=== PATIENT | male | born 1940 ===

== ENCOUNTER 2017-10-16 07:25 | Day surgery (SDC) | payer MEDICARE, OTHER, SELFPAY ==
[2017-10-16] VITALS (8 sets, daily range): BP systolic 121–146; BP diastolic 68–90; PULSE 60–74; RESP 11–18; TEMP 35.8–36.9; O2SAT 96–99; BMI 25.1
--- NOTE | 2017-10-16 | PATH_ITS ---
[facility] Accession Number: [id number] . 01 Material submitted: . PART A: POLYP AT 40CM PART B: MID TRANSVERSE COLON POLYP PART C: HEPATIC FLEXURE POLYP . 02 Diagnosis: A. Colon,, Polyp at 40 cm, Biopsy: Tubular adenoma. . B. Mid Transverse Colon, Polyp, Biopsy: Tubular adenoma. . C. Hepatic Flexure, Polyp, Biopsy: Tubular adenoma. MRV/10/17/2017 . 02 Electronically signed: . Seda Carmona MD, Pathologist NPI- [id number] . 01 Gross description: . Received three formalin-filled containers, each labeled with the patient's name: . A. In a container labeled polyp at 40 cm, the specimen consists of a 0.4 cm portion of tissue, entirely submitted in cassette A. B. In a container labeled mid transverse colon polyp, the specimen consists of four less than 0.1 cm to 0.3 cm portions of tissue, entirely submitted in cassette B. C. In a container labeled hepatic flexure polyp, the specimen consists of two 0.3-0.4 cm portions of tissue, entirely submitted in cassette C. ([id number]) /FRR . 02 Pathologist provided ICD-10: D12.6, D12.3 . 02 CPT . 131098, 529221, 458250 Performed at: 01 [facility] [address] [facility], [place], [place] [id number] MD Santos Morales MD Phone: [phone] Performed at: 02 [facility] [address] [place], [place] [id number] MD Logan Orantes MD Phone: [phone]
[2017-10-16] MEDS: SODIUM CHLORIDE 0.9% 1,000 ML 200 ML IV (07:53)
[2017-10-16] MEDS: MIDAZOLAM 5 MG/5 ML VIAL IV (08:52)
--- NOTE | 2017-10-16 09:12 | PM.HP.1 ---
History of Present Illness Date Patient Seen: 10/16/17 Time Patient Seen: 09:17 Chief complaint: Colonoscopy; 52067 Narrative: Very pleasant 77 year old man here for a screening colonoscopy. His last colonoscopy was 15 years ago and was normal. Her denies any problems or symptoms related to the function of his GI tract. He reports he needs a colonoscopy as part of health maintenance program. Patient History Family & Social History Family History: Reviewed 10/16/17 by Janice Dove MD Social History: household members spouse Meds Home Medications Medication Instructions Recorded Confirmed Type amlodipine [Norvasc] 5 mg PO QDAY #0 10/12/15 10/16/17 History Allergies Allergy/AdvReac Type Severity Reaction Status Date / Time No Known Drug Allergies Allergy Verified 10/16/17 07:46 Review of Systems Review of Systems All systems reviewed & are unremarkable except as noted in HPI and below Exam Vital Signs (past 8 hours): - 10/16/17 07:47 Temperature 96.4 F L Pulse Rate 74 Respiratory Rate 18 Blood Pressure 146/90 H Pulse Oximetry 97 Oxygen Delivery Method Room Air Narrative Exam Narrative: Very pleasant gentleman in no obvious distress. He appears much younger than his stated age HEENT: Normocephalic and atraumatic, pupils equal round reactive to light accommodation with anicteric sclera Lungs: Clear to auscultation bilaterally Heart: Regular rate and rhythm without murmur or gallop Abdomen: Soft nontender, active bowel sounds Extremities: Warm and well perfused Assessment & Plan Plan: Assessment/Plan Narrative: Very pleasant and remarkably healthy 77-year-old gentleman in need of a screening colonoscopy. We discussed the risks and benefits of the procedure the patient expressed a desire to complete it today
--- NOTE | 2017-10-16 10:00 | PM.OP.1 ---
Operative Date/Time/Diagnoses Date of procedure: 10/16/17 Time of procedure: 10:00 Pre-op diagnosis: Screening Post-op diagnosis: same Procedure & Clinicians Procedure: Colonoscopy to the cecum with polypectomy x3 Same procedure as scheduled: Yes Indications: Last colonoscopy 15 years ago Surgeon: Janice Dove Click Yes if Unassisted: Yes Anesthesia Type: Sedation (Versed 5 mg; fentanyl 250 mcg) Operative Notes Findings: 1. Excellent prep 2. 3-4 mm sessile polyp at the hepatic flexure removed with cold forceps and retained for pathology 3. 3-4 mm sessile polyp in the mid transverse colon removed with cold forceps and retained for pathology 4. 5-6 mm pedunculated polyp at 40 cm from the anal verge removed with snare and cautery and retained for pathology 5. Diverticulosis limited to the sigmoid region. Primarily large pockets and no evidence of false passages 6. No AV malformations 7. Grade 1 internal hemorrhoids Closure Type: not applicable Procedure in detail: After obtaining informed consent, the patient was brought to the GI suite and placed in the left lateral decubitus position on the examination table. After placement of appropriate monitors, the patient was given incremental doses of Versed and Fentanyl until an appropriate level of sedation was achieved. A time out was held per SCOAP protocol. A digital rectal examination was performed and did not reveal any masses or obstructing lesions. The colonoscope was gently passed into the patient's anus and the entire colon navigated to the level of the cecum with minimal difficulty. Once in the cecum, the scope was withdrawn being sure to go before and beyond all mucosal folds and prominences and get an excellent examination. The findings are noted above. At the level of the rectal vault, the scope was retroflexed and the internal anal canal was examined. The scope was straightened and air aspirated from the colon. The instrument was removed from the patient's body and the procedure was concluded. The patient was allowed to awaken from sedation without difficulty and taken to the post-anesthesia care unit in good condition. Total sedation time 34 min Total withdrawal time 14 min and 41 sec Complications: none Condition: stable Disposition: PACU Plan for aftercare: 1. Discharge to home 2. We will contact you with pathology results 3. Plan for next colonoscopy in 3 years or as clinically indicated
[2017-10-16] MEDS: fentaNYL 250 MCG/5 ML INJ IV (10:01)
== END 2017-10-16 11:19 | disposition home or self-care (01) ==
PROVIDERS: PCP Internal Medicine; Visit Provider Surgery
PROC: 0DJD8ZZ Inspection of Lower Intestinal Tract, Via Natural or Artificial Opening Endoscopic (ICD-10-PCS; CPT 45378; principal; 2017-10-16 08:45)
DX: Z12.11 Encounter for screening for malignant neoplasm of colon (principal); K57.33 Diverticulitis of large intestine without perforation or abscess with bleeding; K64.0 First degree hemorrhoids; D12.3 Benign neoplasm of transverse colon; D12.6 Benign neoplasm of colon, unspecified
CPT/HCPCS: 45385; 45380; 88305; 99152; 99153; J2250; J3010

== ENCOUNTER → 2018-01-15 11:36 | Outpatient (CLI) | payer MEDICARE, OTHER, SELFPAY ==
[2018-01-15 13:03] LABS: BUN Creatinine Ratio 14.5 (6-22); Blood Urea Nitrogen 16 mg/dL (9-20); Calcium 9.9 mg/dL (8.4-10.2); Carbon Dioxide 29 mmol/L (22-32); Chloride 100 mmol/L (98-107); Estimated Glomerular Filt Rate > 60.0 mL/min (>60); Glucose 93 mg/dL (80-110); HEMOLYSIS < 15 (0-50); Potassium 4.4 mmol/L (3.4-5.1); Sodium 142 mmol/L (137-145)
[2018-01-15 13:30] LABS: Prostate Specific Antigen Scrn 1.45 ng/mL (0.1-4.0)
== END ==
PROVIDERS: PCP Internal Medicine; Visit Provider Internal Medicine
DX: I10 Essential (primary) hypertension (principal); I87.2 Venous insufficiency (chronic) (peripheral); I67.89 Other cerebrovascular disease; Z12.5 Encounter for screening for malignant neoplasm of prostate
CPT/HCPCS: 36415; 80048; G0103

== ENCOUNTER → 2018-03-17 09:21 | Outpatient (CLI) | payer MEDICARE, OTHER, SELFPAY ==
[2018-03-17 11:16] LABS: Blood Urea Nitrogen 30 mg/dL (9-20); Calcium 9.4 mg/dL (8.4-10.2); Carbon Dioxide 32 mmol/L (22-32); Chloride 99 mmol/L (98-107); Estimated Glomerular Filt Rate 45.3 mL/min (>60); Glucose 113 mg/dL (80-110); HEMOLYSIS < 15 (0-50); Potassium 3.7 mmol/L (3.4-5.1); Sodium 140 mmol/L (137-145)
== END ==
PROVIDERS: PCP Internal Medicine; Visit Provider Internal Medicine
DX: I10 Essential (primary) hypertension (principal)
CPT/HCPCS: 36415; 80048

== ENCOUNTER → 2018-04-14 11:36 | Outpatient (CLI) | payer MEDICARE, OTHER, SELFPAY ==
[2018-04-14 12:32] LABS: BUN Creatinine Ratio 21.4 (6-22); Blood Urea Nitrogen 30 mg/dL (9-20); Calcium 9.4 mg/dL (8.4-10.2); Carbon Dioxide 30 mmol/L (22-32); Chloride 100 mmol/L (98-107); Glucose 105 mg/dL (80-110); HEMOLYSIS < 15 (0-50); Potassium 3.8 mmol/L (3.4-5.1); Sodium 139 mmol/L (137-145)
== END ==
PROVIDERS: PCP Internal Medicine; Visit Provider Internal Medicine
DX: I10 Essential (primary) hypertension (principal)
CPT/HCPCS: 36415; 80048

== ENCOUNTER → 2019-03-22 19:02 | Outpatient (ROUT) | payer MEDICARE, OTHER, SELFPAY ==
[2019-03-22 19:10] LABS: Add Manual Diff / Slide Review NO; Basophils Absolute Auto 100 /uL (0-100); Basophils Percent Auto 0.9 % (0-2); Eosinophils Absolute Auto 100 /uL (0-450); Eosinophils Percent Auto 1.3 % (2-4); Hematocrit 40.6 % (41-53); Hemoglobin 13.9 g/dL (13.5-17.5); Lymphocytes Absolute Auto 2400 /uL (1100-4500); Lymphocytes Percent Auto 29.3 % (25-40); Mean Corpuscular HGB Conc 34.3 % (30-36); Mean Corpuscular Hemoglobin 32.9 PG (26-34); Mean Corpuscular Volume 95.8 fL (80-100); Monocytes Absolute Auto 500 /uL (0-900); Neutrophils Absolute Auto 5100 /uL (1500-7000); Neutrophils Percent Auto 62.5 % (50-75); Platelet Count 200 X10^3/uL (150-400); Red Blood Cell Count 4.23 X10^6/uL (4.5-5.9); Red Cell Distribution Width 13.4 % (11.6-14.8); White Blood Cell Count 8.1 X10^3/uL (4.5-11.0)
[2019-03-22 19:32] LABS: Alanine Aminotransferase 28 IU/L (<50); Albumin 4.5 g/dL (3.5-5.0); Albumin Globulin Ratio 1.6 (1.0-2.8); Alkaline Phosphatase 56 U/L (38-126); Aspartate Aminotransferase 64 IU/L (17-59); BUN Creatinine Ratio 16.9 (6-22); Bilirubin Total 0.8 mg/dL (0.2-1.3); Blood Urea Nitrogen 27 mg/dL (9-20); Calcium 9.9 mg/dL (8.4-10.2); Carbon Dioxide 31 mmol/L (22-32); Chloride 98 mmol/L (98-107); Cholesterol 127 mg/dL (140-199); Estimated Glomerular Filt Rate 41.9 mL/min (>60); Globulin 2.8 g/dL (1.7-4.1); Glucose 111 mg/dL (80-110); HDL Cholesterol 59 mg/dL (40-60); HEMOLYSIS < 15 (0-50); LDL Cholesterol Calculated 55 mg/dL (<100); Potassium 4.1 mmol/L (3.4-5.1); Sodium 137 mmol/L (137-145); Total Protein 7.3 g/dL (6.3-8.2); Triglycerides 67 mg/dL (35-150)
[2019-03-22 19:45] LABS: Vitamin D 25 Hydroxy (D3) 97.2 ng/mL (30.0-100.0)
== END ==
PROVIDERS: PCP Internal Medicine; Visit Provider Internal Medicine
DX: I10 Essential (primary) hypertension (principal); I67.89 Other cerebrovascular disease; E78.2 Mixed hyperlipidemia
CPT/HCPCS: 80053; 80061; 82306; 85025

== ENCOUNTER → 2019-07-16 09:04 | Outpatient (CLI) | payer MEDICARE, OTHER, SELFPAY ==
[2019-07-16 11:08] LABS: Glucose Fasting 95 mg/dL (80-110)
[2019-07-16 11:31] LABS: Glucose Tol Interpretation INTERPRETATION
[2019-07-16 11:47] LABS: Vitamin B12 972 pg/mL (239-931)
[2019-07-16 11:49] LABS: Glucose 1 Hour 190 mg/dL (70-170)
[2019-07-16 12:47] LABS: Glucose 2 Hour 140 mg/dL (70-140)
[2019-07-20 12:08] LABS: Immunoglobulin A, Serum 420 mg/dL (61-437); Immunoglobulin G,Serum 817 mg/dL (603-1613); Immunoglobulin M, Serum 42 mg/dL (15-143)
== END ==
PROVIDERS: PCP Internal Medicine; Referring Provider Psychiatry & Neurology Neurology; Visit Provider Psychiatry & Neurology Neurology
DX: G62.9 Polyneuropathy, unspecified (principal)
CPT/HCPCS: 36415; 82607; 82784; 82951; 82952; 84155; 86334

== ENCOUNTER → 2019-09-01 07:57 | Outpatient (CLI) | payer MEDICARE, OTHER, SELFPAY ==
--- NOTE | 2019-09-01 | DI.US.S_ITS ---
PROCEDURE: US RENAL COMPLETE INDICATIONS: CHRONIC KIDNEY DISEASE STAGE III TECHNIQUE: Real-time scanning was performed of the kidneys and bladder, with image documentation. COMPARISON: None. FINDINGS: Kidneys: Right kidney measures 8 cm long; left kidney measures 10.9 cm long. Right renal cortical thickness is 1.2 cm; left renal cortical thickness is 1.5 cm. Renal cortical echotexture is normal. No hydronephrosis. There is a 6 mm nonobstructing left-sided kidney stone seen inferiorly. No suspicious solid mass lesions. Bladder: Pre-void bladder volume is 384 mL. Post-void residual is 110 mL. Pre-void images demonstrate no intraluminal masses or stones. On pre-void images, neither of the ureteral jets are noted with color Doppler interrogation. (Of note, ureteral jets may not be detectable in up to 25% of cases due to insufficient differences in specific gravity between ureteral and bladder urine). Miscellaneous: No free pelvic fluid. IMPRESSION: Small right kidney length, potentially atrophic. Nonobstructing left-sided kidney stone. Moderate postvoid residual, 110 cc. Dictated by: Juan Reyes M.D. on 09/01/2019 at 9:03 Approved by: Juan Reyes M.D. on 09/01/2019 at 9:05
== END ==
PROVIDERS: PCP Internal Medicine; Referring Provider Internal Medicine; Visit Provider Internal Medicine Nephrology
DX: N18.3 Chronic kidney disease, stage 3 (moderate) (principal); N20.0 Calculus of kidney
CPT/HCPCS: 76770

== ENCOUNTER → 2021-09-28 08:33 | Outpatient (CLI) | payer MEDICARE, OTHER, SELFPAY ==
--- NOTE | 2021-09-28 | DI.RAD.S_ITS ---
PROCEDURE: XR KUB INDICATIONS: Intestinal malabsorption TECHNIQUE: One view of the abdomen acquired. COMPARISON: None. FINDINGS: Surgical changes and devices: None. Bowel: Scattered small bowel and colonic gas. No dilated loops of bowel seen. Soft tissues: No suspicious abdominal calcifications. Visualized solid organ contours appear normal in size. Bones: No suspicious bony lesions. IMPRESSION: Nonobstructive bowel gas pattern. If clinically indicated consider further evaluation with CT abdomen pelvis with IV contrast. Dictated by: Guy Small M.D. on 09/28/2021 at 9:46 Approved by: Guy Small M.D. on 09/28/2021 at 9:48
== END ==
PROVIDERS: PCP Internal Medicine Nephrology; Referring Provider Urology; Visit Provider Urology
DX: K90.9 Intestinal malabsorption, unspecified (principal); N18.30 Chronic kidney disease, stage 3 unspecified; R53.83 Other fatigue; R68.82 Decreased libido; N40.1 Benign prostatic hyperplasia with lower urinary tract symptoms; R35.1 Nocturia
CPT/HCPCS: 36415; 51798; 52000; 74018; 81002; 82947; 83036; 83525; 84681; 99212

== ENCOUNTER → 2021-09-28 08:35 | Outpatient (CLI) | payer MEDICARE, OTHER, SELFPAY ==
[2021-09-28 09:54] LABS: Hemoglobin A1C% w Est Avg Glu 5.2 % (4.0-6.0)
[2021-09-28 10:17] LABS: Glucose 107 mg/dL (80-110)
[2021-09-29 06:28] LABS: Insulin Level Total 29.9 uIU/mL (2.6-24.9)
== END ==
PROVIDERS: PCP Internal Medicine Nephrology; Referring Provider Registered Nurse; Visit Provider Registered Nurse
DX: N18.30 Chronic kidney disease, stage 3 unspecified (principal); R53.83 Other fatigue; K90.9 Intestinal malabsorption, unspecified; R68.82 Decreased libido
CPT/HCPCS: 36415; 82947; 83036; 83525; 84681

== ENCOUNTER → 2021-12-13 12:37 | Outpatient (CLI) | payer MEDICARE, OTHER, SELFPAY ==
--- NOTE | 2021-12-13 12:39 | DI.RAD.S_ITS ---
PROCEDURE: XR KUB INDICATIONS: Left lower pole calculus TECHNIQUE: One view of the abdomen acquired. COMPARISON: [facility], CR, XR KUB, 09/28/2021, 8:50. FINDINGS: Surgical changes and devices: None. Bowel: Significant fecal stasis throughout the colon is seen. No gross pneumoperitoneum. Soft tissues: No suspicious abdominal calcifications. Visualized solid organ contours appear normal in size. Bones: No suspicious bony lesions. IMPRESSION: No definite renal calcification is seen. Mild to moderate constipation. No gross free air. Dictated by: Jaya Varghese M.D. on 12/13/2021 at 14:26 Approved by: Jaya Varghese M.D. on 12/13/2021 at 14:27
== END ==
PROVIDERS: PCP Internal Medicine Nephrology; Referring Provider Physical Medicine & Rehabilitation; Visit Provider Physical Medicine & Rehabilitation
DX: N20.0 Calculus of kidney (principal); K59.00 Constipation, unspecified
CPT/HCPCS: 74018

== ENCOUNTER → 2022-07-03 08:30 | Outpatient (CLI) | payer MEDICARE, OTHER, SELFPAY ==
--- NOTE | 2022-07-03 08:32 | DI.RAD.S_ITS ---
PROCEDURE: XR KUB INDICATIONS: Left renal calculus TECHNIQUE: One view of the abdomen acquired. COMPARISON: [facility], CR, XR KUB, 12/13/2021, 12:41. [facility], CR, XR KUB, 09/28/2021, 8:50. FINDINGS: Surgical changes and devices: None. Bowel: Bowel gas pattern is normal. Soft tissues: No suspicious abdominal calcifications. However, the renal shadows are obscured by overlying bowel gas. Visualized solid organ contours appear normal in size. Bones: No suspicious bony lesions. IMPRESSION: No definite renal calculus, although evaluation is compromised by overlying bowel gas. Approved by: Donnie Nolan M.D. on 07/03/2022 at 10:35
== END ==
PROVIDERS: PCP Nurse Practitioner Family; Referring Provider Urology; Visit Provider Urology
DX: N20.0 Calculus of kidney (principal); R35.1 Nocturia; R39.9 Unspecified symptoms and signs involving the genitourinary system; N40.1 Benign prostatic hyperplasia with lower urinary tract symptoms
CPT/HCPCS: 51798; 74018; 81002; 99214

== ENCOUNTER → 2023-07-24 11:06 | Outpatient (CLI) | payer MEDICARE, OTHER, SELFPAY ==
--- NOTE | 2023-07-24 11:08 | DI.RAD.S_ITS ---
PROCEDURE: XR KUB INDICATIONS: Left lower pole kidney stone TECHNIQUE: One view of the abdomen acquired. COMPARISON: [facility], CR, XR KUB, 12/13/2021, 12:41. [facility], CR, XR KUB, 09/28/2021, 8:50. [facility], CR, XR KUB, 07/03/2022, 8:28. FINDINGS: Surgical changes and devices: None. Bowel: Bowel gas pattern is nonobstructive. Soft tissues: No suspicious abdominal calcifications. Visualized solid organ contours appear normal in size. No renal calculus identified radiographically. Bones: No suspicious bony lesions. IMPRESSION: Abdomen without acute radiographic abnormalities. No radiographic evidence for urolithiasis. Dictated by: Omid Fuentes M.D. on 07/24/2023 at 15:16 Approved by: Omid Fuentes M.D. on 07/24/2023 at 15:18
== END ==
PROVIDERS: Referring Provider Urology; Visit Provider Urology
DX: N20.0 Calculus of kidney (principal)
CPT/HCPCS: 74018

== ENCOUNTER → 2025-01-04 11:17 | Outpatient (CLI) | payer MEDICARE, OTHER, SELFPAY ==
--- NOTE | 2025-01-04 11:18 | DI.RAD.S_ITS ---
PROCEDURE: XR KUB INDICATIONS: Left renal stone TECHNIQUE: One view of the abdomen acquired. COMPARISON: [facility], CR, XR KUB, 07/24/2023, 11:09. [facility], CR, XR KUB, 07/03/2022, 8:28. FINDINGS: Surgical changes and devices: None. Bowel: Bowel gas pattern is normal. Moderate volume of stool noted. Soft tissues: No suspicious abdominal calcifications. Visualized solid organ contours appear normal in size. Bones: No suspicious bony lesions. IMPRESSION: No acute abnormality. Dictated by: Danisha Bledsoe M.D. on 01/04/2025 at 20:16 Approved by: Danisha Bledsoe M.D. on 01/04/2025 at 20:17
== END ==
PROVIDERS: Referring Provider Urology; Visit Provider Urology
DX: N20.0 Calculus of kidney (principal)
CPT/HCPCS: 74018